=== PATIENT | female | born 1975 | race Caucasian/White ===

== ENCOUNTER → 2017-02-23 09:14 | Outpatient (POV) | payer BC, SELFPAY | PROVIDERS: Visit Provider Otolaryngology | DX: Z00.00 Encounter for general adult medical examination without abnormal findings (principal) ==

== ENCOUNTER → 2017-04-13 09:35 | Outpatient (CLI) | payer BC, SELFPAY | PROVIDERS: PCP Otolaryngology; Visit Provider Otolaryngology ==